=== PATIENT | male | born 1990 | race Caucasian/White ===

== ENCOUNTER 2019-11-27 07:46 | Emergency (ER) | payer OTHER ==
[~2019-11-27] VITALS: Ht 175.3 cm; Wt 79.4 kg
--- NOTE | 2019-11-27 07:50 | NUR ---
[facility] by KEYON Majano's deputy.
[2019-11-27 07:51] VITALS: BP_SYST 125
--- NOTE | 2019-11-27 07:58 | NUR ---
Pt in chair, C/O back pain that he has had prior to arrest. No injuries noted or C/O from this incedent. No deformaties noted to back.
--- NOTE | 2019-11-27 08:10 | NUR ---
MECHELLE Shaw at bedside examining patient.
[2019-11-27 08:37] VITALS: BP_SYST 125
--- NOTE | 2019-11-27 08:40 | NUR ---
Patient given written and verbal discharge instructions and verbalizes understanding. ER MD discussed with patient the results and treatment provided. Patient in stable condition. ID arm band removed. Patient educated on pain management and to follow up with PMD. Pain Scale 1/10. Opportunity for questions provided and answered. Medication side effect fact sheet provided.
== END 2019-11-27 08:37 ==
LOC: SED 07:46
DX: Z04.3 Encounter for examination and observation following other accident (principal)
CPT/HCPCS: 99283